=== PATIENT | male | born 1960 | race Caucasian/White ===

== ENCOUNTER 2024-03-15 01:41 | Inpatient (IN) | payer OTHER ==
[2024-03-15] VITALS (25 sets, daily range): BP systolic 113–168; BP diastolic 55–118
[~2024-03-15] VITALS: Ht 180.3 cm; Wt 153.0 kg
[~2024-03-15 01:41] MED LIST: XARELTO15 MG PO
[2024-03-15 01:58] LABS: Calcium, Ionized (POC) 1.18 mmol/L (1.10-1.46); Chloride (POC) 104 mmol/L (98-108); Creatinine (POC) 1.2 mg/dL (0.8-1.3); Glucose (ISTAT POC) 166 mg/dL (70-99); Hemoglobin (POC) 15.6 g/dL (13.5-17.5); Potassium (POC) 3.7 mmol/L (3.5-5.5); Sodium (POC) 140 mmol/L (135-148); Total CO2 (POC) 27 mmol/L (21-32)
[2024-03-15 02:15] LABS: International Normalized Ratio 0.96; Prothrombin Time Results 10.3 Sec (9.7-11.5)
[2024-03-15] MEDS ORDERED: Heparin Sodium 1000 Units/ML 10ML MDV ONE ×4 (02:15→10:02)
[2024-03-15] MEDS ORDERED: Verapamil HCL 2.5 MG/ML 2ML Injection ONE ×2 (02:15→09:24)
[2024-03-15 02:16] LABS: Alanine Aminotransfer (ALT/SGP 25 U/L (12-78); Albumin, Blood 3.5 g/dL (3.4-5.0); Alk Phos 65 U/L (50-136); Anion Gap 8 mmol/L (3-11); Aspartate Aminotrans (AST/SGOT 38 U/L (12-37); Bilirubin, Total 0.3 mg/dL (0.1-1.0); Blood Urea Nitrogen 22 mg/dL (8-24); Bun/Creatinine Ratio 18.5 (12.0-20.0); CO2, Blood 28 mmol/L (21-32); Chloride, Blood 109 mmol/L (98-108); Cholesterol 206 mg/dL (50-200); Creatinine, Blood 1.19 mg/dL (0.60-1.20); Globulin, Blood 3.6 g/dL (2.2-4.0); Glomerular Filtration Rate 67 (60-); Glucose, Blood 174 mg/dL (70-99); HDL Cholesterol 41 mg/dL (>39); LDL/HDL RATIO 2.8; Low Density Lipoprotein Chol 114 mg/dL (0-110); Magnesium, Blood 2.3 mg/dL (1.6-2.4); Potassium, Blood 3.8 mmol/L (3.5-5.5); Sodium, Blood 141 mmol/L (136-145); Total Protein, Blood 7.1 g/dL (6.4-8.2); Triglycerides 255 mg/dL (30-160); Very Low Density Lipoprot Chol 51 mg/dL (6-32)
[2024-03-15] MEDS ORDERED: NS 1,000 ML IV ONE ×3 (02:16→09:25)
[2024-03-15] MEDS ORDERED: NS 250 ML IV ONE ×2 (02:16→09:25)
[2024-03-15] MEDS ORDERED: Nitroglycerin 2 MG/20 ML BTL ONE (02:16)
[2024-03-15] MEDS ORDERED: FentaNYL Citrate 50 MCG/ML 2 ML Injection ONE (02:19)
[2024-03-15] MEDS ORDERED: Midazolam HCl 1MG / ML 2ML Vial ONE (02:19)
[2024-03-15] MEDS ORDERED: NiCARdipine HCL 1,000 MCG/5 ML SYR ONE (02:24)
[2024-03-15 02:32] LABS: BASOPHILS ABSOLUTE AUTO 0.08 K/mm3 (0.00-0.23); BASOPHILS PERCENT AUTO 1 % (0-2); EOSINOPHILS ABSOLUTE AUTO 0.25 K/mm3 (0.00-0.68); EOSINOPHILS PERCENT AUTO 2 % (0-6); Hematocrit 45.3 % (37.0-53.0); Hemoglobin 15.5 g/dL (13.5-17.5); IMMATURE GRAN ABSOLUTE AUTO 0.03 K/mm3 (0.00-0.10); IMMATURE GRAN PERCENT AUTO 0 % (0-1); LYMPHOCYTES ABSOLUTE AUTO 3.84 K/mm3 (0.84-5.20); LYMPHOCYTES PERCENT AUTO 34 % (21-46); MONOCYTES ABSOLUTE AUTO 1.06 K/mm3 (0.16-1.47); MONOCYTES PERCENT AUTO 9 % (4-13); Mean Corpuscular HGB 32.7 pg (26.0-34.0); Mean Corpuscular HGB Conc 34.2 g/dL (31.5-36.5); Mean Corpuscular Volume 96 fL (80-100); Mean Platelet Volume 11.3 fL (9.1-12.4); NEUTROPHILS ABSOLUTE AUTO 6.05 K/mm3 (1.96-9.15); NEUTROPHILS PERCENT AUTO 53 % (41-73); Platelet Count 227 K/mm3 (150-400); RDW Coefficient Variation 12.5 % (11.7-14.2); RDW Standard Deviation 44.4 fL (35.1-46.3); Red Blood Cell Count 4.74 M/mm3 (4.30-5.90); White Blood Cell Count 11.31 K/mm3 (4.00-11.30)
[2024-03-15] MEDS ORDERED: Ondansetron HCl 2 MG / ML 2ML Vial IV PRN (02:40)
[2024-03-15] MEDS ORDERED: Clopidogrel Bisulfate 300 MG Cap ONE (02:45)
[2024-03-15] MEDS ORDERED: Potassium Chloride 40 MEQ in NS 250 ML IV ONE (03:45)
[2024-03-15 03:56] LABS: BASOPHILS ABSOLUTE AUTO 0.07 K/mm3 (0.00-0.23); BASOPHILS PERCENT AUTO 1 % (0-2); EOSINOPHILS ABSOLUTE AUTO 0.04 K/mm3 (0.00-0.68); EOSINOPHILS PERCENT AUTO 0 % (0-6); Hematocrit 46.2 % (37.0-53.0); Hemoglobin 15.3 g/dL (13.5-17.5); IMMATURE GRAN ABSOLUTE AUTO 0.03 K/mm3 (0.00-0.10); IMMATURE GRAN PERCENT AUTO 0 % (0-1); LYMPHOCYTES ABSOLUTE AUTO 1.04 K/mm3 (0.84-5.20); LYMPHOCYTES PERCENT AUTO 8 % (21-46); MONOCYTES ABSOLUTE AUTO 0.62 K/mm3 (0.16-1.47); MONOCYTES PERCENT AUTO 5 % (4-13); Mean Corpuscular HGB 31.9 pg (26.0-34.0); Mean Corpuscular HGB Conc 33.1 g/dL (31.5-36.5); Mean Corpuscular Volume 97 fL (80-100); Mean Platelet Volume 10.6 fL (9.1-12.4); NEUTROPHILS ABSOLUTE AUTO 10.61 K/mm3 (1.96-9.15); NEUTROPHILS PERCENT AUTO 86 % (41-73); Platelet Count 210 K/mm3 (150-400); RDW Coefficient Variation 12.6 % (11.7-14.2); RDW Standard Deviation 45.1 fL (35.1-46.3); Red Blood Cell Count 4.79 M/mm3 (4.30-5.90); White Blood Cell Count 12.41 K/mm3 (4.00-11.30)
[2024-03-15] MEDS ORDERED: METO50ER PO (04:05)
[2024-03-15] MEDS ORDERED: XARELTO20 M1 PO (04:05)
[2024-03-15] MEDS ORDERED: TRIAMT/HCTZ TAB 37. (04:08)
[2024-03-15] MEDS ORDERED: PRAVASTATIN SOD20 MG PO (04:12)
[2024-03-15 04:18] LABS: Albumin, Blood 3.4 g/dL (3.4-5.0); Bilirubin, Total 0.3 mg/dL (0.1-1.0); Bun/Creatinine Ratio 19.6 (12.0-20.0); Calcium, Blood 8.8 mg/dL (8.5-10.1); Creatinine, Blood 1.12 mg/dL (0.60-1.20); Globulin, Blood 3.5 g/dL (2.2-4.0); Potassium, Blood 3.9 mmol/L (3.5-5.5); Total Protein, Blood 6.9 g/dL (6.4-8.2)
[2024-03-15] MEDS ORDERED: Guaifenesin/Dextromethorphan Syrup 5 ML UDC PO ONE (06:00)
[2024-03-15] MEDS ORDERED: Heparin Sodium,Porcine/0.5 NS 500 ML IV SCH (06:10)
[2024-03-15] MEDS ORDERED: Heparin Sodium,Porcine 5,000 UNIT/0.5 ML SDV SC ONE (06:30)
--- NOTE | 2024-03-15 06:51 | NUR ---
PT ADMITTED TO ICU 8 FROM [facility] AT 0320. TR BAND OVER RIGHT RADIAL ACCESS SITE. NO OOZING OR HEMATOMA TO NOTE. HAVE BEGUN PROCESS OF REDUCING AIR TO TR BAND. PT HAS PERSISTANT COUGH PT STATES IS NEW SINCE HE WAS IN THE [facility]. ONE TIME ORDER OF GUIAFENSIN RECEIVED AND GIVEN TO PT. PT VOICES NO COMPLAINTS OF CHEST PAIN AT THIS TIME. 2 L/M OXYGEN PLACED SECONDARY TO DESATURATIONS TO 88 PERCENT ON ROOM AIR. PT NORMALLY WEARS CPAP AT HOME. DOES NOT HAVE HIS HOME UNIT. DID DECLINE THE HOSPITAL CPAP FOR THIS NIGHT. HEPARIN DRIP STARTED PER PHARMACY ORDERS. WILL CONTINUE TO MONITOR PT, AND WILL REPORT OFF TO ONCOMING RN.
--- NOTE | 2024-03-15 07:00 | NUR ---
ASSUME CARE: I have assumed care of this patient.
[2024-03-15] MEDS ORDERED: Furosemide 10 MG / ML 2ML Vial IV STA (08:47)
[2024-03-15] MEDS ORDERED: Metoprolol Succinate 50 MG TABCR PO SCH (09:00)
[2024-03-15] MEDS ORDERED: Atorvastatin 40 MG Tab PO SCH (09:00)
[2024-03-15] MEDS ORDERED: Aspirin 81 MG Chew PO SCH (09:00)
[2024-03-15] MEDS ORDERED: NS 500 ML IV ONE (10:02)
[2024-03-15] MEDS ORDERED: Tirofiban HCL Monohydrate 3.75 MG/15 ML Vial ONE (10:12)
[2024-03-15] MEDS ORDERED: Phenylephrine HCl 100 MCG/ML-NS 10MLSYR (1MG/10ML) ONE (10:22)
[2024-03-15] MEDS ORDERED: Atropine Sulfate 0.1 MG/ML 10ML SYR ONE (10:22)
[2024-03-15] MEDS ORDERED: Ticagrelor 90 MG TABLET ONE ×2 (10:30)
[2024-03-15] MEDS ORDERED: Mag Hydrox/AL Hydrox/Simeth 30 ML UDC ONE (10:31)
[2024-03-15] MEDS ORDERED: Ticagrelor 90 MG TABLET PO ONE (10:45)
--- NOTE | 2024-03-15 10:57 | NUR ---
RETURN FROM [facility]: Left sided TR band in place and inflated. No visible bleeding from insertion site. Pt reports mild chest pain that is improved from this morning. Distal perfusion and sensation intact.
[2024-03-15] MEDS ORDERED: Aspirin 81 MG Chew PO ONE (11:20)
[2024-03-15] MEDS ORDERED: Losartan Potassium 50 MG Tab PO SCH (11:20)
--- NOTE | 2024-03-15 13:27 | NUR ---
PROVIDER UPDATE: Pt reports some diaphoresis, dry cough, and anxiety. Dr Barfield and Dr Ryder both notified.
[2024-03-15] MEDS ORDERED: LORazepam 1 MG Tab PO PRN (14:35)
[2024-03-15] MEDS ORDERED: Pantoprazole Sodium 40 MG Tab PO SCH (16:30)
[2024-03-15] MEDS ORDERED: LORazepam 1 MG Tab PO ONE (16:45)
--- NOTE | 2024-03-15 18:10 | NUR ---
SHIFT SUMMARY: Pt was quite anxious, restless, and short of breath this morning with persistant cough. CXR and Echo completed this morning. He was given 20mg of lasix before he returned to label designer for stent placement in proximal LAD. Brilinta was given in label designer. He received metroprolol, cozaar, asprin, and lipitor once he returned. Cough and chest pain had resolved. This afternoon he became anxious again with diaphroesis and mild cough. Providers were notified and 2mg of PO lorazpam administered with mild effect. Pt able to sleep for a short time. His spouse brought in home CPAP machine for night time use. RT set up at bedside for pt. He has been out of bed twice for BMs and voiding spontaneously with urinal.
--- NOTE | 2024-03-15 20:25 | NUR ---
ASSUMED CARE OF PT AT 1900. REPORT RECEIVED AT BEDSIDE. PT PRESENTS IN BED. SLEEPING. AWAKENS EASILY. STATES THAT HE IS FEELING BETTER THIS EVENING. DID SOME TEACHING ON PULMONARY EDEMA AND POST PROCEDURAL CARE. WILL REVIEW CHART AND PLAN OF CARE FOR THIS PT.
[2024-03-15] MEDS ORDERED: Ticagrelor 90 MG TABLET PO SCH (21:00)
[2024-03-16] VITALS: BP 107/63
--- NOTE | 2024-03-16 01:11 | NUR ---
RIGHT AND LEFT RADIAL ACCESS SITES WNL. NO OOZING OR HEMATOMA TO NOTE. PT AWAKENS AND REQUESTS AND IS PROVIDED A LATE SNACK. PT DENIES COMPLAINTS OF CHEST PAIN OR PRESSURE. WILL CONTINUE TO MONITOR.
[2024-03-16 04:00] VITALS: BP 118/67
[2024-03-16 05:35] LABS: BASOPHILS ABSOLUTE AUTO 0.06 K/mm3 (0.00-0.23); BASOPHILS PERCENT AUTO 1 % (0-2); EOSINOPHILS ABSOLUTE AUTO 0.02 K/mm3 (0.00-0.68); EOSINOPHILS PERCENT AUTO 0 % (0-6); Hematocrit 42.4 % (37.0-53.0); Hemoglobin 14.2 g/dL (13.5-17.5); IMMATURE GRAN ABSOLUTE AUTO 0.03 K/mm3 (0.00-0.10); IMMATURE GRAN PERCENT AUTO 0 % (0-1); LYMPHOCYTES ABSOLUTE AUTO 1.66 K/mm3 (0.84-5.20); LYMPHOCYTES PERCENT AUTO 13 % (21-46); MONOCYTES ABSOLUTE AUTO 1.24 K/mm3 (0.16-1.47); MONOCYTES PERCENT AUTO 10 % (4-13); Mean Corpuscular HGB 32.1 pg (26.0-34.0); Mean Corpuscular HGB Conc 33.5 g/dL (31.5-36.5); Mean Corpuscular Volume 96 fL (80-100); Mean Platelet Volume 10.8 fL (9.1-12.4); NEUTROPHILS ABSOLUTE AUTO 9.41 K/mm3 (1.96-9.15); NEUTROPHILS PERCENT AUTO 76 % (41-73); Platelet Count 200 K/mm3 (150-400); RDW Standard Deviation 46.3 fL (35.1-46.3); Red Blood Cell Count 4.42 M/mm3 (4.30-5.90); White Blood Cell Count 12.42 K/mm3 (4.00-11.30)
[2024-03-16 05:58] LABS: Alanine Aminotransfer (ALT/SGP 45 U/L (12-78); Albumin, Blood 2.9 g/dL (3.4-5.0); Albumin/Globulin Ratio 0.9 (0.8-1.8); Alk Phos 58 U/L (50-136); Anion Gap 8 mmol/L (3-11); Aspartate Aminotrans (AST/SGOT 251 U/L (12-37); Bilirubin, Total 0.7 mg/dL (0.1-1.0); Blood Urea Nitrogen 20 mg/dL (8-24); Bun/Creatinine Ratio 19.8 (12.0-20.0); CHOL/HDL RATIO 4.1; CO2, Blood 28 mmol/L (21-32); Calcium, Blood 8.6 mg/dL (8.5-10.1); Chloride, Blood 109 mmol/L (98-108); Cholesterol 182 mg/dL (50-200); Creatinine, Blood 1.01 mg/dL (0.60-1.20); Globulin, Blood 3.3 g/dL (2.2-4.0); Glomerular Filtration Rate 82 (60-); Glucose, Blood 126 mg/dL (70-99); HDL Cholesterol 44 mg/dL (>39); LDL/HDL RATIO 2.4; Low Density Lipoprotein Chol 108 mg/dL (0-110); Potassium, Blood 3.9 mmol/L (3.5-5.5); Sodium, Blood 141 mmol/L (136-145); Total Protein, Blood 6.2 g/dL (6.4-8.2); Triglycerides 152 mg/dL (30-160); Very Low Density Lipoprot Chol 30 mg/dL (6-32)
--- NOTE | 2024-03-16 06:41 | NUR ---
PT HAS BEEN INDEPENDENT IN ROOM. NO CHEST PAIN OR PRESSURE VOICED BY PT. STATES HE IS FEELING MUCH BETTER. HAS HAD A PERIO WHERE HE WAS IN [place]. ASYMPTOMATIC. WILL CONTINUE TO MONITOR PT, AND WILL REPORT OFF TO ONCOMING RN.
[2024-03-16] MEDS ORDERED: Aspirin 81 MG Chew PO SCH (09:00)
[2024-03-16 11:07] VITALS: BP 141/92
--- NOTE | 2024-03-16 11:07 | NUR ---
SHIFT SUMMARY PATIENT TRANSFERRED TO PCU 16 VIA WHEELCHAIR WITH BELONGINGS AND DAUGHTER. PATIENT WAS A&O X 4, INDEPENDENT, AND COOPERATIVE WITH CARE. CLEAR LUNG SOUNDS T/O ON ROOM AIR AND SPO2 IN MID TO HIGH 90'S. SR WITH RATE 80'S. BILATERAL RADIAL SITES C/D/I WITH TEGADERM AND ARMBOARDS IN PLACE. SLIGHT SWELLING OF RT RADIAL THAT IS UNCHANGED FROM EXECUTIVE CHAIRMAN OF THE BOARD NURSE ASSESSMENT PER BEDSIDE SHIFT REPORT. PATIENT DENIES CP. DENIES NAUSEA, ACTIVE BT X 4. NO OTHER CHANGES DURING SHIFT.
[2024-03-16 15:57] VITALS: BP 116/74
--- NOTE | 2024-03-16 17:24 | NUR ---
END OF SHIFT PT BROUGHT TO PCU-16 BY WHEELCHAIR FROM ICU @ APPROX 1100 THIS SHIFT. PT A&O X4, ABLE TO STAND & INDEPENDENTLY AMBULATE. PT VSS. SPO2 > 92% ON RA. MONITOR SHOWING SR, HR 80s. PT DENYING CP BUT REPORTS SOME CHEST "TIGHTNESS" THAT PT THEN DENYING HAVING FURTHER. PT W/ BILAT RADIAL ACCESS SITES DRESSED W/ TEGADERM. R RADIAL ACCESS SITE W/ AN APPROXIMATE DIME SIZED BRUISING/SWELLING THAT PT STATING "THAT'S BEEN LIKE THAT." PT DENYING FURTHER NEEDS. FAMILY INTERMITTENTLY AT BEDSIDE T/O SHIFT.
[2024-03-16 19:57] VITALS: BP 120/68
[2024-03-16] MEDS ORDERED: Rivaroxaban 10 MG Tab PO SCH (21:00)
[2024-03-17 00:23] VITALS: BP 105/69
[2024-03-17 03:44] VITALS: BP 134/91
[2024-03-17 04:12] LABS: BASOPHILS ABSOLUTE AUTO 0.03 K/mm3 (0.00-0.23); BASOPHILS PERCENT AUTO 0 % (0-2); EOSINOPHILS ABSOLUTE AUTO 0.06 K/mm3 (0.00-0.68); EOSINOPHILS PERCENT AUTO 1 % (0-6); Hematocrit 41.9 % (37.0-53.0); Hemoglobin 14.3 g/dL (13.5-17.5); IMMATURE GRAN ABSOLUTE AUTO 0.04 K/mm3 (0.00-0.10); IMMATURE GRAN PERCENT AUTO 0 % (0-1); LYMPHOCYTES ABSOLUTE AUTO 1.88 K/mm3 (0.84-5.20); LYMPHOCYTES PERCENT AUTO 18 % (21-46); MONOCYTES ABSOLUTE AUTO 1.37 K/mm3 (0.16-1.47); MONOCYTES PERCENT AUTO 13 % (4-13); Mean Corpuscular HGB 32.9 pg (26.0-34.0); Mean Corpuscular HGB Conc 34.1 g/dL (31.5-36.5); Mean Corpuscular Volume 97 fL (80-100); Mean Platelet Volume 11.3 fL (9.1-12.4); NEUTROPHILS ABSOLUTE AUTO 7.33 K/mm3 (1.96-9.15); NEUTROPHILS PERCENT AUTO 68 % (41-73); Platelet Count 173 K/mm3 (150-400); RDW Coefficient Variation 12.9 % (11.7-14.2); RDW Standard Deviation 46.1 fL (35.1-46.3); Red Blood Cell Count 4.34 M/mm3 (4.30-5.90); White Blood Cell Count 10.71 K/mm3 (4.00-11.30)
[2024-03-17 04:32] LABS: Bun/Creatinine Ratio 15.5 (12.0-20.0); Calcium, Blood 8.5 mg/dL (8.5-10.1); Creatinine, Blood 1.1 mg/dL (0.60-1.20); Potassium, Blood 3.8 mmol/L (3.5-5.5)
--- NOTE | 2024-03-17 04:34 | NUR ---
SHIFT SUMMARY THIS RN ASSUMED CARE OF PATIENT AT 1900. PT A&O X4. ABLE TO MAKE NEEDS KNOWN. INDEPENDENT WITH ADL'S. VSS. PT DENIES CHEST PAIN/PRESSURE T/O THIS SHIFT. USING HOME CPAP FOR NOC. BILATERAL RADIAL ANGIO SITES REMAIN UNCHANGED FROM PREVIOUS ASSESSMENT. DRESSING C/D/I. PPP. BED IN LOWEST POSITION AND CALL LIGHT WITHIN REACH. THIS RN WILL REPORT TO ONCOMING DAYSHIFT RN.
[2024-03-17 07:39] VITALS: BP 117/78
[2024-03-17] MEDS ORDERED: XARELTO20 MG PO (08:55)
[2024-03-17] MEDS ORDERED: ASPI81CH PO (08:56)
[2024-03-17] MEDS ORDERED: LOSA25 PO (09:00)
[2024-03-17] MEDS ORDERED: PANT40 PO (09:06)
[2024-03-17] MEDS ORDERED: TICA90TA PO (09:07)
--- NOTE | 2024-03-17 11:09 | NUR ---
DISCHARGE HOME PT A&O X4. VSS. SPO2 > 92% ON RA WHILE AWAKE, CPAP WHILE SLEEPING. MONITOR SHOWING NSR. PT INDEPENDENT IN RM. BILAT RADIAL ACCESS SITES W/ NO CHANGES. DISCHARGE INSTRUCTIONS REVIEWED W/ PT & SENT HOME W/ PT. PIVs REMOVED. PT TAKEN OUT BY WHEELCHAIR W/ BELONGINGS @ APPROX 1000.
== END 2024-03-17 10:19 | disposition home or self-care (01) | DRG 321 ==
LOC: ER 01:41 → ICUE 01:42 → ER 02:17 → ICUE 02:17 → PCU 03-16 10:58
PROVIDERS: Emergency Medicine; Internal Medicine; ADMIT Internal Medicine Cardiovascular Disease
PROC: 027034Z Dilation of Coronary Artery, One Artery with Drug-eluting Intraluminal Device, Percutaneous Approach (ICD-10-PCS; principal; 2024-03-15)
PROC: 4A023N7 Measurement of Cardiac Sampling and Pressure, Left Heart, Percutaneous Approach (ICD-10-PCS; 2024-03-15)
PROC: B2111ZZ Fluoroscopy of Multiple Coronary Arteries using Low Osmolar Contrast (ICD-10-PCS; 2024-03-15)
DX: I21.3 ST elevation (STEMI) myocardial infarction of unspecified site (principal); J81.0 Acute pulmonary edema; I13.0 Hypertensive heart and chronic kidney disease with heart failure and stage 1 through stage 4 chronic kidney disease, or unspecified chronic kidney disease; I50.22 Chronic systolic (congestive) heart failure; Z68.42 Body mass index [BMI] 45.0-49.9, adult; K21.9 Gastro-esophageal reflux disease without esophagitis; E78.5 Hyperlipidemia, unspecified; I25.10 Atherosclerotic heart disease of native coronary artery without angina pectoris; Z86.711 Personal history of pulmonary embolism; Z86.718 Personal history of other venous thrombosis and embolism; E66.01 Morbid (severe) obesity due to excess calories; G47.33 Obstructive sleep apnea (adult) (pediatric); Z79.01 Long term (current) use of anticoagulants; N18.9 Chronic kidney disease, unspecified; R73.9 Hyperglycemia, unspecified
CPT/HCPCS: 36415; 71045; 76937; 80047; 80048; 80053; 80061; 83735; 83880; 84484; 85014; 85025; 85347; 85610; 85730; 86850; 86900; 86901; 93005; 93010; 93454; 94760; 94762; 96365; 96366; 96374; 96375; 99152; 99153; 99291-25; A9270; C1725; C1769; C1874; C1887; C1894; C8929; C9600; G0378; J0461; J1644; J1940; J2250; J2371; J3010; J3246; J3480; J7030; J7040; J7050; Q9957; Q9967

== ENCOUNTER 2025-07-03 08:27 | Inpatient (IN) | payer OTHER ==
[~2025-07-03] VITALS: Ht 180.3 cm; Wt 152.4 kg
[~2025-07-03 08:27] MED LIST changes: +ASPI81CH PO; +LOSA25 PO; +METO50ER PO; +PANT40 PO; +PRAVASTATIN SOD20 MG PO; +TICA90TA PO; +TRIAMT/HCTZ TAB 37.; +XARELTO20 M1 PO; +XARELTO20 MG PO
[2025-07-03 08:59] LABS: BASOPHILS ABSOLUTE AUTO 0.06 K/mm3 (0.00-0.23); BASOPHILS PERCENT AUTO 1 % (0-2); EOSINOPHILS ABSOLUTE AUTO 0.10 K/mm3 (0.00-0.68); EOSINOPHILS PERCENT AUTO 2 % (0-6); Hematocrit 47.3 % (37.0-53.0); Hemoglobin 15.8 g/dL (13.5-17.5); IMMATURE GRAN ABSOLUTE AUTO 0.01 K/mm3 (0.00-0.10); IMMATURE GRAN PERCENT AUTO 0 % (0-1); LYMPHOCYTES ABSOLUTE AUTO 2.12 K/mm3 (0.84-5.20); LYMPHOCYTES PERCENT AUTO 31 % (21-46); MONOCYTES ABSOLUTE AUTO 0.77 K/mm3 (0.16-1.47); MONOCYTES PERCENT AUTO 11 % (4-13); Mean Corpuscular HGB Conc 33.4 g/dL (31.5-36.5); Mean Corpuscular Volume 93 fL (80-100); NEUTROPHILS ABSOLUTE AUTO 3.83 K/mm3 (1.96-9.15); NEUTROPHILS PERCENT AUTO 56 % (41-73); NRBC ABSOLUTE 0.00 K/mm3 (0.00-0.02); NRBC Auto 0.0 /100 WBC (0.0-0.2); Platelet Count 228 K/mm3 (150-400); RDW Coefficient Variation 12.6 % (11.7-14.2); RDW Standard Deviation 43.4 fL (35.1-46.3)
[2025-07-03 09:24] LABS: Alanine Aminotransfer (ALT/SGP 24.0 U/L (12-78); Albumin, Blood 3.7 g/dL (3.4-5.0); Albumin/Globulin Ratio 0.9 (0.8-1.8); Anion Gap 7.0 mmol/L (3-11); Aspartate Aminotrans (AST/SGOT 26.0 U/L (12-37); Bilirubin, Total 0.7 mg/dL (0.1-1.0); Blood Urea Nitrogen 15.0 mg/dL (8-24); CO2, Blood 27.0 mmol/L (21-32); Calcium, Blood 9.6 mg/dL (8.5-10.1); Chloride, Blood 106.0 mmol/L (98-108); Creatinine, Blood 1.11 mg/dL (0.60-1.20); Globulin, Blood 3.9 g/dL (2.2-4.0); Glucose, Blood 131.0 mg/dL (70-99); Potassium, Blood 4.1 mmol/L (3.5-5.5); Sodium, Blood 136.0 mmol/L (136-145); Total Protein, Blood 7.6 g/dL (6.4-8.2)
[2025-07-03] MEDS ORDERED: CLOP75 (09:25)
[2025-07-03] MEDS ORDERED: Crestor40 MG PO (09:26)
[2025-07-03] MEDS ORDERED: FLU VACC TS2025(65UP)/MF59C/PF 45 MCG/0.5 ML SYRINGE IM SCH (12:55)
[2025-07-03 13:24] LABS: Anti-Xa UFH, PHA Monitoring 0.14 IU/mL; Prothrombin Time Results 11.1 Sec (9.7-11.5)
[2025-07-03] MEDS ORDERED: Dose Adjust by Pharmacy XX STA ×2 (14:02→21:32)
[2025-07-03] MEDS ORDERED: Heparin Sodium,Porcine/0.5 NS 500 ML IV SCH (14:05)
[2025-07-03 16:35] VITALS: BP 157/82
--- NOTE | 2025-07-03 17:03 | NUR ---
PT ARRIVED FROM ER VIA [facility] @ 1265. HE AMBULATED FROM [facility] TO BED INDEPENDENTLY. USED THE URINAL INDEPENDENTLY. ADMISSION AND MED REC COMPLETED. PT IS A&Ox4 AND ABLE TO MAKE NEEDS KNOWN. HE IS ON RA W/O2 SATS >92%. NO NEEDS OR CONCERNS NOTED @ THIS TIME. NO C/O CP OR PRESSURE. BED IN LOW POSITION, CALL LIGHT AND PERSONAL BELONGINGS IN REACH.
[2025-07-03 20:26] VITALS: BP 158/103
[2025-07-03] MEDS ORDERED: Heparin Sodium 5000 Units/ML 1ML MDV IV ONE (21:35)
[2025-07-03 23:59] VITALS: BP 135/72
[2025-07-04] VITALS (13 sets, daily range): BP systolic 102–167; BP diastolic 57–134
[2025-07-04] MEDS ORDERED: Dose Adjust by Pharmacy XX STA ×2 (04:42→20:23)
--- NOTE | 2025-07-04 06:24 | NUR ---
SHIFT SUMMARY PT IS A&O X4, ABLE TO MAKE NEEDS KNOWN, MOVING ALL EXTREMITIES WITH PURPOSE, OBEYS COMMANDS, REPOSITIONING SELF IN BED, CALLS APPROPRIATELY. CONTINUOUS SPO2, SPO2 GREATER THAN 92% ON RA, CPAP AT BEDSIDE FOR WHILE PT SLEEPS, PT DENIES SOB T/O THIS SHIFT. CONTINUOUS TELE MONITORING, SINUS 40-60 S, BP STABLE WITH MAP GREATER THAN 65, PULSES PRESENT T/O, REPORTED CHEST PAIN AT THE BEGINNING OF THIS SHIFT THAT WAS RELIEVED WITH PRN NITRO, HEPARIN INFUSING PER ORDERS. BOWEL TONES PRESENT IN ALL 4Q, PT DENIES FEELINGS OF NAUSEA OR CONSTIPATION, PT BEEN NPO SINCE 0000 07/04/25. VOIDING IND, URINE YELLOW. BED LOWEST POSITION, CALL LIGHT IN REACH, AWAITING TO GIVE REPORT TO ONCOMING RN.
[2025-07-04] MEDS ORDERED: Verapamil HCL 2.5 MG/ML 2ML Injection ONE (07:22)
[2025-07-04] MEDS ORDERED: Heparin Sodium 1000 Units/ML 10ML MDV ONE ×2 (07:22→08:06)
[2025-07-04] MEDS ORDERED: NS 1,000 ML IV ONE ×2 (07:23→07:26)
[2025-07-04] MEDS ORDERED: NS 250 ML IV ONE (07:23)
[2025-07-04] MEDS ORDERED: Nitroglycerin 2 MG/20 ML BTL ONE (07:24)
[2025-07-04] MEDS ORDERED: Midazolam HCl 1MG / ML 2ML Vial ONE (08:03)
[2025-07-04] MEDS ORDERED: FentaNYL Citrate 50 MCG/ML 2 ML Injection ONE (08:03)
--- NOTE | 2025-07-04 13:49 | NUR ---
NURSING PCU DAY SHIFT Assumed care of pt at approx 0700. A/O, pleasant, cooperative w/care. No c/o pain/discomfort. Ambulates independently w/SBA for line management. Skin intact w/o breakdown noted. Tele in place, SB/SR w/BBB, no c/o CP/pressure. LS cta t/o, O2 sat upper 90's on RA. PIV x2, hep gtt infusing per pharmacy dosing. To HC at approx 0800, returned to room via bed at 0930. TR band w/wrist board in place. Recovered w/o difficulty. Spoke w/cardiology, hep gtt restarted, plan for stress test w/resting portion 07/05 and stress portion 07/06. Plan of care discussed w/PMD and pt, questions answered. No s/s of acute distress at this time, call light in reach, cont to monitor for changes.
--- NOTE | 2025-07-04 17:43 | NUR ---
END OF SHIFT SUMMARY PT IS A&O X4 ABLE TO MAKE NEEDS KNOWN AND AFEBRILE. CONTINUOUS CARDIAC MONITORING IS IN PLACE SHOWING SR/SB, HR IN THE 60'S, MAP >65. HEPRAIN IS INFUSING AT 17 U/KG/HR. R RADIAL ANGIO SITE HAS TR BAND REMOVED AND IS WITHOUT HEMATOMA, REDNESS, OR SWELLING. PT IS ON RA WITH SP02 >92%. PT IS ON CARDIAC DIET AND CAN TOLERATE PO INTAKE WELL. PT IS IND TO THE BATHROOM. RAC AND LAC PIV ARE IN PLACE. BED IN LOWEST POSITION, CALL LIGHT IN REACH, WILL REPORT TO ONCOMING SHIFT.
--- NOTE | 2025-07-04 20:52 | NUR ---
ASSUMPTION OF CARE ASSUMED CARE OF PT AT APPROXIMATELY 1900. HEP GTT RUNNING AT 17UNITS/KG/HR. PT RESTING IN BED. AOX4. PT C/O VERY MILD CHEST TIGHTNESS. DENIES MEDICATION AT THIS TIME. WILL CONTINE TO MONITOR AND MEDICATE PER EMAR IF NECESSARY. PT INDEPENDENT IN ROOM. NO C/O SOB. O2 96% ON RA. HEPARIN GTT INCREASED TO 18UNITS/KG/HR DT DECREASE IN APTT. CALL LIGHT WITHIN REACH AND PT CALLS APPROPRIATELY WHEN NEEDED.
[2025-07-05 03:05] VITALS: BP 113/71
[2025-07-05 03:06] LABS: Hematocrit 43.9 % (37.0-53.0); Hemoglobin 14.5 g/dL (13.5-17.5); Platelet Count 204 K/mm3 (150-400)
[2025-07-05] MEDS ORDERED: Dose Adjust by Pharmacy XX STA ×3 (04:07→16:46)
--- NOTE | 2025-07-05 05:15 | NUR ---
SHIFT SUMMARY PT REPORTED MILD CHEST TIGHTNESS (1 OUT OF 10) AT START OF SHIFT. PT DECLINED MEDICATION AT THAT TIME. REPORTED IMPROVEMENT AT REASSESSMENT AN HOUR LATER. NO FURTHER REPORTS OF CHEST PAIN, CHEST DISCOMFORT, OR CHEST TIGHTNESS THROUGHOUT THE SHIFT. NO C/O SOB. HEPARIN GTT INCREASED TO 18 UNITS/KG/HR. NO S/S OF BLEED. PT AOX4. INDEPENDENT IN ROOM. CALL LIGHT WITHIN REACH AND PT CALLS APPROPRIATELY FOR ASSISTANCE WHEN NEEDED. PT NPO AT MIDNIGHT FOR STRESS TEST IN AM. RIGHT RADIAL ANGIO SITE WITHIN NORMAL LIMITS. NO SIGN OF HEMATOMA. NO INCREASED BRUISING. NO BLEEDING PRESENT. DRESSING CLEAN, DRY AND INTACT.
[2025-07-05 08:40] VITALS: BP 142/87
[2025-07-05 12:40] VITALS: BP 126/72
[2025-07-05 16:44] VITALS: BP 131/79
--- NOTE | 2025-07-05 17:31 | NUR ---
END OF SHIFT SUMMARY PT IS A/O X4 AND ABLE TO MAKE NEEDS KNOWN AND CAN MOVE EXTREMITIES EQUALLY AND BILATERALLY. CONTINUOUS CARDAIC MONITORING IN PLACE SHOWING SR/SB, MAP >65. HR IN THE 50'S-70'S. PT IS ON RA WITH SP02 >92%. PT IS INDEPENDENT TO BATHROOM. HEPRAIN IS INFUSING AT 20 U/KG/HR. LAC AND RAC PIV ARE IN PLACE. BED IN LOWEST POSITION, CALL LIGHT IN REACH, WILL REPORT TO ONCOMING SHIFT.
[2025-07-05 19:45] VITALS: BP 145/98
[2025-07-05 23:22] VITALS: BP 143/95
[2025-07-06 04:02] VITALS: BP 115/81
[2025-07-06] MEDS ORDERED: Dose Adjust by Pharmacy XX STA (04:16)
[2025-07-06 04:43] LABS: Hematocrit 45.3 % (37.0-53.0); Hemoglobin 15.0 g/dL (13.5-17.5); Platelet Count 186 K/mm3 (150-400)
--- NOTE | 2025-07-06 05:38 | NUR ---
SHIFT SUMMARY ASSUMED CARE OF PT AT APPROXIMATELY 1900. PTS AT BEDSIDE. HEPARIN GTT RUNNING AT 20 UNITS/KG/HR. RATE LATER DECREASED TO 19 UNITS/KG/HR. NO S/S OF BLEEDING. 0417: APTT 98.2. PER LAB, HEPARIN ON HOLD 1 HOUR THEN RESUMED AT 17 UNITS/KG/HR. PT SR/SB ON TELE. NO C/O CHEST PAIN OR PRESSURE. NO C/O SOB. SPO2 >92% ON RA WHILE AWAKE AND WITH CPAP WHILE SLEEPING. PT INDEPENDENT IN ROOM. AOX4. ABLE TO MAKE ALL NEEDS KNOWN. CALL LIGHT WITHIN REACH AND PT CALLS APPROPRIATELY FOR ASSISTANCE WHEN NEEDED.
[2025-07-06 12:18] VITALS: BP 148/98
[2025-07-06 14:26] LABS: Anti-Xa UFH, PHA Monitoring 0.74 IU/mL
[2025-07-06] MEDS ORDERED: Clarify Drug Order XX ONE (14:35)
[2025-07-06] MEDS ORDERED: JARDIANCE10 MG PO (15:56)
[2025-07-06] MEDS ORDERED: Isosorbide Mono30 MG PO (16:31)
--- NOTE | 2025-07-06 17:09 | NUR ---
Discharge Home Pt A&O x4. VSS. Spo2 > 92% on RA. Monitor showing SB-SR, HR 45-60s. Pt denying CP/discomfort or any other form of pain/discomfort. 2nd day stress test complete. w/ order to DC heparin gtt, give PO xarelto & discharge home. Discharge instructions reviewed w/ pt & sent home w/ pt. PIVs removed. Pt taken out in wheelchair w/ belongings @ approx 1700.n
== END 2025-07-06 17:08 | disposition home or self-care (01) | DRG 281 ==
LOC: ER 08:27 → PCU 08:28
PROVIDERS: Emergency Medicine; Physician Assistant; ADMIT Family Medicine
DX: I21.4 Non-ST elevation (NSTEMI) myocardial infarction (principal); I50.22 Chronic systolic (congestive) heart failure; I25.2 Old myocardial infarction; K21.9 Gastro-esophageal reflux disease without esophagitis; E78.5 Hyperlipidemia, unspecified; G47.30 Sleep apnea, unspecified; I11.0 Hypertensive heart disease with heart failure; I25.10 Atherosclerotic heart disease of native coronary artery without angina pectoris; E66.813 Obesity, class 3; Z95.5 Presence of coronary angioplasty implant and graft; Z86.711 Personal history of pulmonary embolism; Z79.01 Long term (current) use of anticoagulants; Z79.02 Long term (current) use of antithrombotics/antiplatelets; Z79.899 Other long term (current) drug therapy
CPT/HCPCS: 36415; 71046; 76937; 78452; 80053; 83690; 84484; 85014; 85018; 85025; 85049; 85347; 85520; 85610; 85730; 92978; 93005; 93010; 93017; 93454; 96374; 96376; 99152; 99153; 99285-25; A9270; A9500; C1753; C1769; C1887; C1894; C8929; G0378; J0706; J1644; J2250; J2785; J3010; J7030; J7050; Q9957; Q9967